=== PATIENT | female | born 1995 | race Caucasian/White ===

== ENCOUNTER 2018-04-16 08:54 | Emergency (ER) | payer BC ==
[2018-04-16 09:17] VITALS: BP 134/83
[2018-04-16] MEDS ORDERED: Ondansetron ODT TAB* 4 MG PO ONE (09:27)
--- NOTE | 2018-04-16 10:00 | UC ---
Headache HPI - HPI Summary HPI Summary: Onset of migraine last night, which has not responded to 2 doses of imitrex, uncertain dose, thinks 50mg. Has vomited x 1, mild photophobia and phonophobia, no balance loss, dysesthesias, scotoma. Has about 2 migraines per month, uncertain trigger. Typically does not use NSAID at same time as triptan. - History Of Current Complaint Chief Complaint: UCHeadache Stated Complaint: MIGRAINE Time Seen by Provider: 04/16/18 09:27 Hx Obtained From: Patient Hx Last Menstrual Period: 2 weeks Onset/Duration: Sudden Onset, Lasting Hours Onset Of Symptoms: Sudden Pain Intensity: 9 Timing: Constant Character: Throbbing Location of Headache: Temporal - left Aggravating Factor(s): Position Change, Bright Lights Allevating Factor(s): Rest Associated Signs And Symptoms: Positive: Nausea, Vomiting - Allergies/Home Medications Allergies/Adverse Reactions: Allergies Allergy/AdvReac Type Severity Reaction Status Date / Time No Known Allergies Allergy Verified 04/16/18 09:17 Home Medications: Home Medications Nuvaring 1 unit VAGINAL SEE INSTRUCTIONS 04/16/18 [History Confirmed 04/16/18] PARoxetine HCL TAB* [Paxil TAB*] 10 mg PO DAILY 04/16/18 [History Confirmed 01/29] SUMAtriptan TAB* [Imitrex TAB*] 25 - 50 mg PO SEE INSTRUCTIONS PRN 04/16/18 [ History Confirmed 04/16/18] PMH/Surg Hx/FS Hx/Imm Hx Psychological History: Depression - Surgical History Surgical History: None - Family History Known Family History: Positive: None - no family history of migraine. 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 Alcohol Use: Occasionally Substance Use Type: None Smoking Status (MU): Never Smoked Tobacco - Immunization History Vaccination Up to Date: Yes Review of Systems Constitutional: Fatigue Skin: Negative Eyes: Negative ENT: Negative Respiratory: Negative Cardiovascular: Negative Gastrointestinal: Negative Genitourinary: Negative Motor: Negative Neurovascular: Negative Musculoskeletal: Negative Neurological: Headache Psychological: Negative Is Patient Immunocompromised?: No All Other Systems Reviewed And Are Negative: Yes Physical Exam Triage Information Reviewed: Yes Appearance: Well-Appearing, Pain Distress - moderate Vital Signs: Initial Vital Signs Temp 98.8 F 04/16/18 09:08 Pulse 77 04/16/18 09:08 Resp 20 04/16/18 09:08 BP 134/83 04/16/18 09:08 Pulse Ox 100 04/16/18 09:08 Vital Signs Reviewed: Yes Eye Exam: Normal Eyes: Positive: Conjunctiva Clear ENT: Positive: Pharynx normal Neck exam: Normal Neck: Positive: Supple, Nontender, No Lymphadenopathy Respiratory: Positive: Lungs clear, Normal breath sounds Cardiovascular: Positive: RRR, No Murmur Musculoskeletal Exam: Normal Neurological Exam: Other - JUNAID, normal eom. No pronator drift. CNII-XII normal DTR's normal Neurological: Positive: Alert, Muscle Tone Normal Skin Exam: Normal Re-Evaluation - Re-Evaluation First Eval Re-Evaluation Time: 11:00 - headache almost resolved. Change: Improved Headache Course/Dx - Course Course Of Treatment: toradol effective for suppressing migraine pain. - Differential Dx/Diagnosis Differential Diagnosis/HQI/PQRI: Migraine, Sinus Headache, Tension Headache Provider Diagnoses: migraine headache. Discharge - Sign-Out/Discharge Documenting (check all that apply): Discharge/Admit/Transfer - Discharge Plan Condition: Stable Disposition: HOME Patient Education Materials: Migraine Headache (ED) Referrals: Yumi Mccloud PA [Primary Care Provider] - Additional Instructions: You headache was treated with toradol today (60mg). If you have recurrent headache, you can take sumatriptan again today, up to 100mg. After 4 pm you could take additional anti-inflammatory for persistent headache, taking either ibuprofen 800mg or naproxen (aleve) 440mg. - Billing Disposition and Condition Condition: STABLE Disposition: Home
[2018-04-16] MEDS ORDERED: Ketorolac INJ* 60 MG/2 ML VIAL IM ONE (10:15)
== END 2018-04-16 11:10 | disposition home or self-care (01) ==
LOC: UCCORT 08:54
DX: G43.909 Migraine, unspecified, not intractable, without status migrainosus (principal); F32.9 Major depressive disorder, single episode, unspecified
CPT/HCPCS: 96372; 99202; A9270-GY; G0463; J1885

== ENCOUNTER 2018-09-04 08:08 | Emergency (ER) | payer BC ==
[2018-09-04 08:21] VITALS: BP 140/76
[2018-09-04] MEDS: Ondansetron ODT TAB* 4 MG PO ONE (08:28)
[2018-09-04] MEDS: Ketorolac INJ* 30 MG/ML 1 ML VIAL IM ONE (08:50)
--- NOTE | 2018-09-04 08:54 | UC ---
Headache HPI - HPI Summary HPI Summary: Patient presents to urgent care with her significant other. Patient with a history of migraines. Patient states she takes Maxalt 2-3 times a month. Patient to contact student and left her Maxalt at home. Patient states she felt this migraine started last night. Patient states this started behind her left eye and gravitated child frontal area. Patient with nausea and recurrent emesis of the night. Patient states this is not uncommon for her migraines. Patient unable to take any Aleve which she typically takes because of the vomiting. Patient tried to sip some water that didn't stay down. Patient without any fevers or chills. No congestion. No ear pain. Patient states she' s got some mild photophobia which is common but no vision changes. Patient states this is exactly how her migraines typically present. Patient's troponin. Patient's medications reviewed this visit. - History Of Current Complaint Chief Complaint: UCHeadache Stated Complaint: MIGRAINE Time Seen by Provider: 09/04/18 08:34 Hx Obtained From: Patient, Medical Records Hx Last Menstrual Period: 08/11/18 ?: No Pain Intensity: 10 - Allergies/Home Medications Allergies/Adverse Reactions: Allergies Allergy/AdvReac Type Severity Reaction Status Date / Time No Known Allergies Allergy Verified 04/16/18 09:17 Home Medications: Home Medications Rizatriptan Benzoate [Maxalt-Cloth Bin Packer] 10 mg PO 09/04/18 [History] PMH/Surg Hx/FS Hx/Imm Hx Previously Healthy: Yes Psychological History: Other - migraine - Surgical History Surgical History: None - Family History Known Family History: Positive: None - no family history of migraine. - Social History Occupation: Student Lives: With Family Alcohol Use: Occasionally Substance Use Type: None Smoking Status (MU): Never Smoked Tobacco - Immunization History Vaccination Up to Date: Yes Review of Systems All Other Systems Reviewed And Are Negative: Yes Constitutional: Positive: Negative Skin: Positive: Negative Eyes: Positive: Photophobia - photophobia Neurological: Positive: Headache Physical Exam - Summary Physical Exam Summary: Vital Signs Reviewed: Yes A+Ox3, discomfort, lights off Eyes: Conjunctiva Clear, DYLON. EOM intact and full m ild photophobia ENT: Hearing grossly normal TM x 2 clear, mmoist, uvula midline, no exudate, no erythema Neck: Positive: Supple Respiratory: Positive: No respiratory distress, No accessory muscle use + CTA throughout no w/r Cardiovascular: RRR nl s1, s2 no m/r CBT <2 sec abd soft + BS nt/nd no guarding, no distension Musculoskeletal Exam: CEE x 4 without difficulty Strength Intact, ROM Intact Neurological: Positive: Alert, + sensation throughout, ambulatory without difficulty Psychological: Positive: Normal Response To Family Skin: Positive: no rash, no ecchymosis + pallor Triage Information Reviewed: Yes Vital Signs: Initial Vital Signs Temp 97.6 F 09/04/18 08:18 Pulse 97 09/04/18 08:18 Resp 14 09/04/18 08:18 BP 140/76 09/04/18 08:18 Pulse Ox 100 09/04/18 08:18 Re-Evaluation - Re-Evaluation First Eval Re-Evaluation Time: 09:14 Change: Improved Comment: nausea resolved. CRABTREE improving. will d/c with Rx maxalt and zofran. hydrate. return precautions. comfort and agreement with plan Headache Course/Dx - Course Course Of Treatment: Pt with a h/o migraine HAs. Pt states typically uses Maxalt. pt left at school. Pt with typical migraine since last evening Pt with recurrent emesis. Pt states location, tempo, symptoms, and intensity of migraine or typical for her. + mild photophobia. d/w pt treatment options - will give IM toradol and zofran. Will Rx maxalt. close reassessment. BP mildly elevated - pt in discomfort - Differential Dx/Diagnosis Provider Diagnoses: migraine CRABTREE Discharge - Sign-Out/Discharge Documenting (check all that apply): Patient Departure All imaging exams completed and their final reports reviewed: No Studies - Discharge Plan Condition: Stable Disposition: HOME Prescriptions: Ondansetron ODT TAB* [Zofran 4 MG Odt TAB*] 4 mg PO Q4H PRN #10 tab.odt PRN Reason: Nausea Rizatriptan ODT (NF) [Maxalt-JOURNEYMAN GLAZIER (NF)] 10 mg PO Q8HR PRN #5 tab PRN Reason: Migraine Headache Patient Education Materials: Migraine Headache (ED) Referrals: Yumi Mccloud PA [Primary Care Provider] - Additional Instructions: - Stay hydrated. Drink plenty of non-alcoholic, non-caffinated - Take Maxalt as prescribed and needed for discomfort - Okay to take Alleve OR ibuprofen (Advil, motrin). You should not take either of these for at least 6 hours from the time of injection at - stay hydrated - frequent sips of fluid - Avoid alcohol contact your doctor or return with questions or concerns - Billing Disposition and Condition Condition: STABLE Disposition: Home
== END 2018-09-04 09:19 | disposition home or self-care (01) ==
LOC: UCCORT 08:08
DX: G43.909 Migraine, unspecified, not intractable, without status migrainosus (principal)
CPT/HCPCS: 96372; 99212; A9270-GY; G0463; J1885